=== PATIENT | female | born 2000 | race Caucasian/White ===

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

== ENCOUNTER 2020-04-08 15:05 | Emergency (ER) | payer SELFPAY ==
[2020-04-08] MEDS ORDERED: SODIUM CHLORIDE 0.9% (FLUSH) 10 ML SYG IV PRN (15:29)
--- NOTE | 2020-04-08 15:29 | ED.PDOC ---
History of Present Illness - General Chief Complaint: [employer] Problem Stated Complaint: Vaginal bleeding in Time Seen by Provider: 04/08/20 15:23 Source: patient Exam Limitations: no limitations - History of Present Illness Initial Comments: This is a 19-year-old female, A0 at 14 weeks EGA by dates (LMP 12/28/2019), presenting with vaginal bleeding and passing small clots. Bleeding onset 3 days ago. She denies any pain. She denies passing any tissue. She also reports some increased vaginal discharge. She denies any fever, vomiting, diarrhea. No recent trauma. She had status confirmed at an urgent care center approximately month ago. She has not had an ultrasound or any OB follow-up for the current . Allergies/Adverse Reactions: Allergies NO KNOWN ALLERGY Allergy (Verified 04/08/20 15:55) Home Medications: Ambulatory Orders Acetaminophen W/ Codeine [Tylenol W/ CODEINE #3] 1 - 2 tablet PO Q6H PRN #20 04/08/20 Ondansetron Tab [Zofran Tab] 4 mg PO Q8H PRN #15 tab 04/08/20 Review of Systems - Review of Systems Constitutional: Denies: chills, fever EENTM: Denies: ear pain, nose congestion, throat pain, throat swelling Respiratory: Denies: cough, short of breath, stridor Cardiology: Denies: chest pain, edema, palpitations Gastrointestinal/Abdominal: Denies: abdominal pain, constipation, diarrhea, nausea, vomiting Genitourinary: States: see HPI, discharge. Denies: dysuria, frequency, hematuria, pain Musculoskeletal: Denies: back pain, muscle pain, neck pain Skin: Denies: lesions, rash Neurological: Denies: anxiety, numbness, tingling, weakness Endocrine: States: no symptoms reported Hematologic/Lymphatic: States: no symptoms reported Past Medical History (General) - Patient Medical History Hx Seizures: No Hx Stroke: No Hx Dementia: No Hx Asthma: No Hx of COPD: No Hx Cardiac Disorders: Yes - murmur? Hx Congestive Heart Failure: No Hx Pacemaker: No Hx Hypertension: No Hx Thyroid Disease: No Hx Diabetes: No Hx Gastroesophageal Reflux: No Hx Renal Disease: No Hx Cancer: No Hx of HIV: No Hx Hepatitis C: No Hx MRSA: No - Vaccination History Hx Tetanus, Diphtheria Vaccination: No Hx Influenza Vaccination: No Hx Pneumococcal Vaccination: No - Social History Hx Tobacco Use: No Hx Chewing Tobacco Use: No Hx Alcohol Use: No Hx Substance Use: No Hx Substance Use Treatment: No Hx Depression: No Hx Physical Abuse: No Hx Emotional Abuse: No Hx Suspected Abuse: No - Female History Patient : No Family Medical History - Family History Father Hx Cardiac Disease: Yes Physical Exam - Physical Exam General Appearance: Alert, Comfortable Eyes, Ears, Nose, Throat Exam: PERRL/EOMI, normal ENT inspection, TMs normal, pharynx normal Neck: non-tender, full range of motion, supple, normal inspection Cardiovascular/Respiratory: regular rate, rhythm, no M/R/G, normal peripheral pulses, no JVD, normal breath sounds, no respiratory distress Gastrointestinal/Abdominal: normal bowel sounds, non tender, soft Rectal Exam: deferred Pelvic Exam: external exam normal, other - Pelvic exam performed with female RN present. There is a large amount of blood and tissue within the vaginal canal on speculum exam. The tissue was removed and appeared to be consistent with possible placental tissue as well as a fluid-filled sac that I believe likely represents the gestational sac. Cervical os was open. Suspect completed miscarriage Back Exam: normal inspection, no CVA tenderness, no vertebral tenderness Extremity: normal range of motion, non-tender, normal inspection, no pedal edema Neurologic: no motor/sensory deficits, alert, normal mood/affect, oriented x 3 Skin Exam: normal color, warm/dry Progress - Progress Progress: 04/08/20 18:34 Rechecked. Discussed lab/ultrasound findings. Discussed my suspicion that she has had a completed miscarriage. Recommended follow-up with PCP or with gynecology in 3 to 5 days for recheck. Strict warnings given to return the emergency room for worsening bleeding, dizziness, chest pain, shortness of breath, fever, or any other concerns. All questions answered. DDX: Miscarriage, IUP, ectopic MDM: Patient presenting with vaginal bleeding, reportedly 14 weeks by dates. On pelvic exam she had blood in tissue within the vaginal canal. When the tissue was removed, it appears to be consistent with placental tissue and a gestational sac. POC's were sent to pathology for confirmation. Office was open. Ultrasound showed no IUP or intrauterine retained POC's. Ultrasound was obtained after the pelvic exam was performed and the tissue was removed. Suspect completed miscarriage. Carl Clarke DO [facility] #[id number] - Results/Orders Results/Orders: Wet prep negative 04/08/20 15:29 Pelvic Exam Assist ONCE Sodium Chloride 0.9% (Flush) [Saline Flush Syringe] 10 ml IV PRN PRN OB ,Early (0-14wks) [US] Stat 04/08/20 15:45 TYPE AND SCREEN Stat 04/08/20 16:00 PATHOLOGY SPECIMEN Routine 04/08/20 16:15 GC CHLAMYDIA RNA,TMA Stat PATH [PATHOLOGY SPECIMEN] Stat Laboratory Results - last 24 hr 04/08/20 04/08/20 04/08/20 15:45 15:45 15:45 WBC 8.3 RBC 4.61 Hgb 13.7 Hct 40.7 MCV 88.2 MCH 29.6 MCHC 33.6 RDW 13.2 Plt Count 193 MPV 9.4 Absolute Neuts (auto) 5.70 Absolute Lymphs (auto) 1.50 Absolute Monos (auto) 0.80 Absolute Eos (auto) 0.10 Absolute Basos (auto) 0.10 Neutrophils % 69.4 Lymphocytes % 18.5 L Monocytes % 10.1 H Eosinophils % 1.4 Basophils % 0.6 Sodium 138 Potassium 3.8 Chloride 106 Carbon Dioxide 24 Anion Gap 11.8 L BUN 15 Creatinine 0.84 BUN/Creatinine Ratio 17.9 Random Glucose 86 Serum Osmolality 275.8 Calcium 9.7 Total Bilirubin 0.5 AST 21 ALT 19 Alkaline Phosphatase 52 L Serum Total Protein 7.9 Albumin 4.5 Globulin 3.4 Albumin/Globulin Ratio 1.3 Beta HCG, Quant 3747.0 H Urine Color Urine Appearance Urine pH Ur Specific [place] Urine Protein Urine Glucose (UA) Urine Ketones Urine Blood Urine Nitrite Urine Bilirubin Urine Urobilinogen Ur Leukocyte Esterase Urine RBC Urine WBC Ur Epithelial Cells Urine Bacteria 04/08/20 15:50 WBC RBC Hgb Hct MCV MCH MCHC RDW Plt Count MPV Absolute Neuts (auto) Absolute Lymphs (auto) Absolute Monos (auto) Absolute Eos (auto) Absolute Basos (auto) Neutrophils % Lymphocytes % Monocytes % Eosinophils % Basophils % Sodium Potassium Chloride Carbon Dioxide Anion Gap BUN Creatinine BUN/Creatinine Ratio Random Glucose Serum Osmolality Calcium Total Bilirubin AST ALT Alkaline Phosphatase Serum Total Protein Albumin Globulin Albumin/Globulin Ratio Beta HCG, Quant Urine Color Yellow Urine Appearance Clear Urine pH 7.5 Ur Specific [place] 1.020 Urine Protein Negative Urine Glucose (UA) Negative Urine Ketones Negative Urine Blood Trace-lysed H Urine Nitrite Negative Urine Bilirubin Negative Urine Urobilinogen 0.2 Ur Leukocyte Esterase Negative Urine RBC 1-3 Urine WBC 0 Ur Epithelial Cells 3-5 Urine Bacteria Rare EXAM: US , Transvaginal CLINICAL HISTORY: vaginal bleeding, TECHNIQUE: Real-time transvaginal obstetrical ultrasound of the maternal pelvis and a first trimester with image documentation. Transvaginal imaging was used for better evaluation of the fetus and adnexa. COMPARISON: No relevant prior studies available. FINDINGS: Gestation: No intrauterine gestational sac is identified. The endometrial cavity measures 1.4 cm thickness and contains on her a small focus of probable fluid. Placenta/amniotic fluid: Cannot be adequately evaluated due to the early gestational age. Uterus/cervix: 9.3 x 4.5 x 5.7 cm. No myometrial mass. Ovaries: Right measures 1.7 x 1.5 x 1.4 cm. Left measures 2.6 x 1.5 x 2.4 cm. Each ovary appears normal. No mass. Free fluid: No free fluid. IMPRESSION: No intrauterine gestational sac is identified. Small amount of fluid in the endometrial cavity. Electronically signed by: Lexie Mirza MD 04/08/2020 6:11 PM Departure - Departure Clinical Impression: Complete miscarriage Time of Disposition: 18:17 Disposition: Discharge to Home or Self Care Condition: Good Departure Forms: ED Discharge - Pt. Copy, Patient Portal Self Enrollment Instructions: Dealing With Miscarriage, DI for Miscarriage Diet: resume usual diet Activity: increase activity as tolerated Referrals: Durga Flores MD [Active Staff] - 1-5 Days Prescriptions: Acetaminophen W/ Codeine [Tylenol W/ CODEINE #3] 1 - 2 tablet PO Q6H PRN #20 PRN Reason: Moderate To Severe Pain Ondansetron Tab [Zofran Tab] 4 mg PO Q8H PRN #15 tab PRN Reason: Nausea Home Medications: Ambulatory Orders Acetaminophen W/ Codeine [Tylenol W/ CODEINE #3] 1 - 2 tablet PO Q6H PRN #20 04/08/20 Ondansetron Tab [Zofran Tab] 4 mg PO Q8H PRN #15 tab 04/08/20 Additional Instructions: Return to the emergency room immediately for increased bleeding, chest pain, shortness of breath, loss of consciousness, dizziness, fever, or any other concerns peer
--- NOTE | 2020-04-08 18:13 | US ---
EXAM: US , Transvaginal CLINICAL HISTORY: vaginal bleeding, TECHNIQUE: Real-time transvaginal obstetrical ultrasound of the maternal pelvis and a first trimester with image documentation. Transvaginal imaging was used for better evaluation of the fetus and adnexa. COMPARISON: No relevant prior studies available. FINDINGS: Gestation: No intrauterine gestational sac is identified. The endometrial cavity measures 1.4 cm thickness and contains on her a small focus of probable fluid. Placenta/amniotic fluid: Cannot be adequately evaluated due to the early gestational age. Uterus/cervix: 9.3 x 4.5 x 5.7 cm. No myometrial mass. Ovaries: Right measures 1.7 x 1.5 x 1.4 cm. Left measures 2.6 x 1.5 x 2.4 cm. Each ovary appears normal. No mass. Free fluid: No free fluid. IMPRESSION: No intrauterine gestational sac is identified. Small amount of fluid in the endometrial cavity. Electronically signed by: Lexie Mirza MD 04/08/2020 6:11 PM CDT
[2020-04-08 18:32] VITALS: BP 129/81; TEMP 98.7; O2SAT 99
== END 2020-04-08 18:31 | disposition home or self-care (01) ==
LOC: ER 15:05
DX: O03.9 Complete or unspecified spontaneous abortion without complication (principal)